=== PATIENT | male | born 1995 | race Hispanic/Latino ===

== ENCOUNTER 2018-12-23 19:24 | Emergency (ER) | payer OTHER ==
[2018-12-23 20:15] VITALS: BP 133/87; PULSE 65; TEMP 97.8
--- NOTE | 2018-12-23 21:27 | C.PDOC ---
History Of Present Illness 23 year old male presents to the ED for evaluation of a dry cough and runny nose which began a few weeks ago. Patient states he had pneumonia in August 2018 and feels like his symptoms never completely resolved. Patient presents to the ED today because he is concerned he may still have pneumonia. He denies fever, chills, and shortness of breath. Time Seen by Provider: 12/23/18 20:27 Chief Complaint (Nursing): Cough, Cold, Congestion History Per: Patient History/Exam Limitations: no limitations Onset/Duration Of Symptoms: Other (few weeks ) Current Symptoms Are (Timing): Still Present Associated Symptoms: denies: Fever Past Medical History Reviewed: Historical Data, Nursing Documentation, Vital Signs Vital Signs: Last Vital Signs Temp 97.8 F 12/23/18 20:11 Pulse 65 12/23/18 20:11 Resp 20 12/23/18 20:11 BP 133/87 12/23/18 20:11 Pulse Ox 100 12/23/18 20:11 - Medical History PMH: Pneumonia Surgical History: No Surg Hx Family History: States: Unknown Family Hx - Social History Hx Alcohol Use: No Hx Substance Use: No - Immunization History Hx Tetanus Toxoid Vaccination: No Hx Influenza Vaccination: No Hx Pneumococcal Vaccination: No Review Of Systems Constitutional: Negative for: Fever, Chills, Weakness ENT: Positive for: Nose Discharge. Negative for: Mouth Swelling Cardiovascular: Negative for: Chest Pain Respiratory: Positive for: Cough. Negative for: Shortness of Breath, Sputum Gastrointestinal: Negative for: Nausea, Vomiting Musculoskeletal: Negative for: Back Pain Skin: Negative for: Rash Neurological: Negative for: Weakness, Numbness, Dizziness Physical Exam - Physical Exam Appears: Well, Non-toxic, No Acute Distress Skin: Normal Color, Warm, No Rash Head: Atraumatic, Normacephalic Eye(s): bilateral: Normal Inspection Ear(s): Bilateral: Normal Nose: Other (mucus in nares and enlarged turbinates bilaterally ) Oral Mucosa: Moist Throat: Normal (no swelling or injection ), No Exudate, Other (airway patent ) Neck: Normal ROM, Supple Chest: Symmetrical Respiratory: No Accessory Muscle Use, Other (normal inspiratory effort) Neurological/Psych: Oriented x3, Normal Cranial Nerves (grossly intact ) ED Course And Treatment O2 Sat by Pulse Oximetry: 100 (on RA ) Pulse Ox Interpretation: Normal Medical Decision Making Medical Decision Making: Progress: CXR ordered and reviewed. On reassessment, patient is resting comfortably, showing no signs of respiratory distress and is stable for discharge. Patient is advised to f/u with his PMD within 1-2 days for further evaluation. 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 - Scribe Statement The provider has reviewed the documentation as recorded by the Scribe (Mckenzie Carlson) All medical record entries made by the Scribe were at my direction and personally dictated by me. I have reviewed the chart and agree that the record accurately reflects my personal performance of the history, physical exam, medical decision making, and the department course for this patient. I have also personally directed, reviewed, and agree with the discharge instructions and disposition.
[2018-12-23 21:32] VITALS: RESP 16
[2018-12-23 21:34] VITALS: O2SAT 100
--- NOTE | 2018-12-24 18:36 | RAD ---
Date of service: 12/23/2018 HISTORY: coughing COMPARISON: No prior. TECHNIQUE: Chest PA and lateral views FINDINGS: LUNGS: No active pulmonary disease. PLEURA: No significant pleural effusion identified. No pneumothorax apparent. CARDIOVASCULAR: No aortic atherosclerotic calcification present. Normal cardiac size. No pulmonary vascular congestion. OSSEOUS STRUCTURES: No significant abnormalities. VISUALIZED UPPER ABDOMEN: Normal. OTHER FINDINGS: None. IMPRESSION: No active disease.
== END 2018-12-23 21:32 | disposition home or self-care (01) ==
LOC: C.ER 19:24
DX: J06.9 Acute upper respiratory infection, unspecified (principal)